=== PATIENT | male | born 1995 | race Caucasian/White ===

== ENCOUNTER → 2017-03-16 | Outpatient (CLI) | payer BC, OTHER | LOC: M WUC 16:18 | PROVIDERS: ATTEND Physician Assistant | DX: Z02.5 Encounter for examination for participation in sport (principal) ==

== ENCOUNTER → 2020-01-03 | Outpatient (CLI) | payer BC, OTHER, SELFPAY | LOC: M LABSMTC 14:17 | PROVIDERS: ATTEND Family Medicine | DX: Z03.818 Encounter for observation for suspected exposure to other biological agents ruled out (principal); Z11.59 Encounter for screening for other viral diseases ==